=== PATIENT | female | born 1955 | race Two or more races ===

== ENCOUNTER 2024-02-16 16:09 | Inpatient (IN) | payer OTHER ==
[~2024-02-16] VITALS: Ht 162.6 cm; Wt 68.0 kg
[2024-02-16] MEDS ORDERED: LEVO-T25 MCG PO (16:15)
--- NOTE | 2024-02-16 16:15 | NUR ---
PACIENTE ALERTA Y ORIENTADA X3 TRAIDA EN AMBULANCIA DESDE CRUCERO POR PULMONIA, AL MOMENTO PACIENTE VERBALIZA PADECER DE COPD. PACIENTE VERBALIZA TENENR MICHELLE DOLOR DE ESPALDA, TOS. SE MONITOREAN S/V Y SE DOCUMENTAN EN SISTEMA.
[2024-02-16] MEDS ORDERED: IPRATROPIUM BROMIDE 0.5 MG/2.5 ML AMPUL.NEB IH ONE (16:45)
[2024-02-16] MEDS ORDERED: LEVALBUTEROL HCL 0.63 MG/3 ML SOLUTION IH ONE (16:45)
[2024-02-16 16:47] LABS: HEMATOCRIT 33.3 % (36.0-45.00); MEAN CELL VOLUME 90.1 fL (80.00-100.00); MEAN CORPUSCULAR HEMOGLOBIN 29.6 pg (27.00-32.0); MEAN CORPUSCULAR HGB CONC 32.9 g/dl (32.0-36.0); PLATELET COUNT 350 K/uL (150-450); RED CELL DISTRIBUTION WIDTH 14.1 % (11.5-14.5)
--- NOTE | 2024-02-16 16:49 | NUR ---
PACIENTE EVALUADA POR DRA FARNSWORTH QUIEN ORDENA TRATAMIENTO MEDICO, SE LE ORIENT A PACIENTE SOBR EL MISMO Y VERBALIZA ENTENDER, SE LE COLECTAN MUESTRAS Y SE CANALIZA BAJO MEDIDAS ASEPITCAS, TERAPIAS Y ABG NOTIFICAS A MR BAKER
[2024-02-16 17:34] LABS: ALBUMIN 2.9 gm/dL (3.4-5.0); BILIRUBIN TOTAL 0.45 mg/dL (0.3-1.2); CALCIUM 9.4 mg/dL (8.5-10.1); CREATININE SERUM 0.59 mg/dL (0.55-1.02); GFR 100.77; GLOBULINA 2.9 G/DL (2.4-3.5); POTASSIUM 4.52 mEq/L (3.5-5.1); TOTAL PROTEIN 5.8 gm/dL (6.4-8.2)
[2024-02-16 18:27] LABS: ABG PH 7.417 (7.35-7.45); ABG PO2 63.8 mmHg (80-100); BASE EXCESS 2.2 mmol/l; BICARBONATE 27.1 mmol/l (23-25); SaO2 92.6 %; Tco2 28.4 mmol/l; allen test SATISFACTORY; o2 21 %; puncture site RADIAL LEFT
[2024-02-16] MEDS ORDERED: 0.9 % SODIUM CHLORIDE 1,000 ML IV SCH (18:45)
[2024-02-16] MEDS ORDERED: AZITHROMYCIN 500 MG in DEXTROSE 5 % IN WATER 250 ML IV SCH (18:50)
[2024-02-16] MEDS ORDERED: CEFTRIAXONE SODIUM 2,000 MG in 0.9 % SODIUM CHLORIDE 100 ML IV SCH (18:51)
[2024-02-16] MEDS ORDERED: OSELTAMIVIR PHOSPHATE 75 MG CAPSULE PO SCH (18:52)
[2024-02-16] MEDS ORDERED: ONDANSETRON HCL 4 MG in 0.9 % SODIUM CHLORIDE 50 ML IV PRN (19:00)
[2024-02-16] MEDS ORDERED: KETOROLAC TROMETHAMINE 15 MG VIAL IV ONE (19:00)
[2024-02-16] MEDS ORDERED: ACETAMINOPHEN 500 MG GEL..CAP PO PRN (19:00)
[2024-02-16] MEDS ORDERED: METHYLPREDNISOLONE SOD SUCC 125 MG VIAL IV ONE (19:00)
[2024-02-16] MEDS ORDERED: GUAIFENESIN/DEXTROMETHORPHAN 100 MG/5 ML ML PO SCH (21:00)
[2024-02-16] MEDS ORDERED: IPRATROPIUM BROMIDE 0.5 MG/2.5 ML AMPUL.NEB IH SCH (21:00)
[2024-02-16] MEDS ORDERED: LEVALBUTEROL HCL 1.25 MG/3 ML SOLUTION IH SCH (21:00)
[2024-02-17 01:18] LABS: INR 1.07; PARTIAL THROMBOPLASTIN TIME 27.2 SECONDS (22.0-34.0); PROTHROMBIN TIME 11.2 SECONDS (9.0-11.5)
[2024-02-17] MEDS ORDERED: FAMOTIDINE/PF 20 MG in 0.9 % SODIUM CHLORIDE 8 ML IV PUSH SCH (05:00)
[2024-02-17] MEDS ORDERED: LEVOTHYROXINE SODIUM 25 MCG TABLET PO SCH (06:00)
[2024-02-17] MEDS ORDERED: FOLIC ACID 1 MG TABLET PO SCH (09:00)
[2024-02-17] MEDS ORDERED: ENOXAPARIN SODIUM 40 MG/0.4 ML SYRINGE SUBCUTANEO SCH (09:00)
[2024-02-17] MEDS ORDERED: LOSARTAN POTASSIUM 50 MG TABLET PO SCH (09:00)
[2024-02-17 09:44] LABS: URINE APPEARANCE Clear; URINE BILIRRUBIN Negative (NEGATIVE); URINE BLOOD Negative; URINE COLOR Yellow; URINE GLUCOSE Negative (NEGATIVE); URINE LEUKOCYTE Negative; URINE NITRATE Negative; URINE PROTEIN Negative (NEGATIVE); URINE UROBILINOGEN 0.2 E.U./dl
[2024-02-17 09:45] LABS: URINE EPITHELIAL CELLS 5.8 uL (0.0-38.8); URINE WBC 4.1 uL (0.0-23.2)
[2024-02-19 07:59] LABS: HEMATOCRIT 28.9 % (36.0-45.00); HEMOGLOBIN 9.8 g/dL (12.0-15.00); MEAN CELL VOLUME 91.2 fL (80.00-100.00); PLATELET COUNT 373 K/uL (150-450); RED BLOOD COUNT 3.17 M/uL (4.00-6.00); RED CELL DISTRIBUTION WIDTH 13.8 % (11.5-14.5)
[2024-02-19 08:32] LABS: ALBUMIN 2.7 gm/dL (3.4-5.0); BILIRUBIN TOTAL 0.27 mg/dL (0.3-1.2); CALCIUM 9.1 mg/dL (8.5-10.1); CREATININE SERUM 0.55 mg/dL (0.55-1.02); GFR 109.27; GLOBULINA 2.3 G/DL (2.4-3.5); POTASSIUM 3.66 mEq/L (3.5-5.1)
[2024-02-19] MEDS ORDERED: FAMOtidine 20 MG TABLET PO SCH (21:00)
[2024-02-20] MEDS ORDERED: METHYLPREDNISOLONE SOD SUCC 40 MG VIAL IV SCH (11:49)
[2024-02-20 12:58] LABS: ABG PH 7.461 (7.35-7.45); ABG PO2 58.9 mmHg (80-100); ABG pCO2 43.7 mmHg (35-45); SaO2 92.1 %
[2024-02-20 12:59] LABS: BASE EXCESS 5.9 mmol/l; BICARBONATE 30.5 mmol/l (23-25); Tco2 31.8 mmol/l; allen test SATISFACTORY; o2 21 %; puncture site RADIAL RIGHT
== END 2024-02-20 14:11 | disposition home or self-care (01) | DRG 194 ==
LOC: ER 16:09 → SEC-K 19:29 → SURH 19:29
PROVIDERS: General Practice; ADMIT Internal Medicine; ATTEND Internal Medicine
PROC: BW24ZZZ Computerized Tomography (CT Scan) of Chest and Abdomen (ICD-10-PCS; principal; 2024-02-16)
DX: J10.00 Influenza due to other identified influenza virus with unspecified type of pneumonia (principal); J44.1 Chronic obstructive pulmonary disease with (acute) exacerbation; E03.9 Hypothyroidism, unspecified; I10 Essential (primary) hypertension; Z20.822 Contact with and (suspected) exposure to COVID-19; Z95.0 Presence of cardiac pacemaker